=== PATIENT | female | born 1995 | race African-American/Black ===

== ENCOUNTER 2019-08-12 23:49 | Emergency (ER) | payer SELFPAY ==
--- NOTE | 2019-08-13 01:39 | ER Document Report ---
ED General - General Chief Complaint: STD Exposure Stated Complaint: STD EXPOSURE Time Seen by Provider: 08/13/19 01:22 Notes: Patient is a 24-year-old female that comes emergency department with 2 complaints. First complaint is that her new boyfriend just developed a discharge and painful urination and she is concerned she was exposed to an STD. She denies abdominal pain, vaginal bleeding or discharge, dysuria. She states that it is possible she is and she was to be checked although she did have a menstrual cycle within the past 3 weeks. Second complaint is intermittent but frequent lower back pain on both sides which comes and goes. It does respond to ibuprofen and she received a shot of Toradol for this once. She denies injury, fever, IV drug abuse, focal numbness or weakness. She denies any surgeries other than hernia repair as a child. She denies any other complaints. TRAVEL OUTSIDE OF THE [place] IN LAST 30 DAYS: No - Related Data Allergies/Adverse Reactions: No Known Allergies Allergy (Unverified 08/13/19 00:15) Past Medical History - General Information source: Patient Last Menstrual Period: 07/27/19 - Social History Smoking Status: Current Some Day Smoker Chew tobacco use (# tins/day): No Frequency of alcohol use: None Drug Abuse: None Lives with: Family Family History: Reviewed & Not Pertinent Patient has suicidal ideation: No Patient has homicidal ideation: No Surgical Hx: Negative - Immunizations Immunizations up to date: Yes Hx Diphtheria, Pertussis, Tetanus Vaccination: Yes Review of Systems - Review of Systems Constitutional: No symptoms reported EENT: No symptoms reported Cardiovascular: No symptoms reported Respiratory: No symptoms reported Gastrointestinal: See HPI Genitourinary: See HPI Female Genitourinary: See HPI Musculoskeletal: No symptoms reported Skin: No symptoms reported Hematologic/Lymphatic: No symptoms reported Neurological/Psychological: No symptoms reported Physical Exam - Vital signs Vitals: Temp Pulse Resp Pulse Ox 98.3 F 73 20 99 08/13/19 00:03 08/13/19 00:03 08/13/19 00:03 08/13/19 00:03 - Notes Notes: GENERAL: Alert, interacts well. No acute distress. HEAD: Normocephalic, atraumatic. EYES: Pupils equal, round, and reactive to light. Extraocular movements intact. ENT: Oral mucosa moist, tongue midline. Oropharynx unremarkable. Airway patent. LUNGS: Clear to auscultation bilaterally, no wheezes, rales, or rhonchi. No respiratory distress. HEART: Regular rate and rhythm. No murmur ABDOMEN: Soft, non-tender. Non-distended. Bowel sounds present in all 4 quadrants. GENITOURINARY: No bleeding, discharge, tenderness, lesions, or concerning findings noted. Exam performed with [facility] PCT at bedside EXTREMITIES: Moves all 4 extremities spontaneously. No edema, normal radial and dorsalis pedis pulses bilaterally. No cyanosis. BACK: no cervical, thoracic, lumbar midline tenderness. No saddle anesthesia, normal distal neurovascular exam. Moves all extremities in full range of motion. NEUROLOGICAL: Alert and oriented x3. Normal speech. Cranial nerves II through XII grossly intact. PSYCH: Normal affect, normal mood. SKIN: Warm, dry, normal turgor. No rashes or lesions noted. Course - Re-evaluation Re-evalutation: Patient repeatedly asks whether or not she is . This was negative. Urine does indicate infection. Gonorrhea and Chlamydia negative, pelvic exam is very unremarkable with unremarkable wet mount, exam, and no cervical motion tenderness. Abdomen is nontender, vital signs unremarkable. Patient also has what appears to be a mild yeast infection under the breasts bilaterally. She was given Diflucan, started on antibiotics, given repeat Diflucan dose for later. Discussed primary care follow-up and return precautions. Patient states appreciation and agreement. - Vital Signs Vital signs: Temp Pulse Resp BP Pulse Ox 98.2 F 79 16 141/82 H 99 08/13/19 03:00 08/13/19 03:00 08/13/19 03:00 08/13/19 03:00 08/13/19 03:00 - Laboratory Laboratory results interpreted by me: 08/13/19 02:12 Urine Protein 30 H Ur Leukocyte Esterase LARGE H Discharge - Discharge Clinical Impression: Flank pain, Possible exposure to STD, Skin rash Condition: Stable Disposition: HOME, SELF-CARE Additional Instructions: Your work-up shows a urinary tract infection but no other concerning findings. I recommend that you take the antifungal medication after completion of the antibiotics for the urinary tract infection. Your test was negative. Follow-up with primary care for additional management. Return if you worsen including vomiting, developing abdominal pain, fever, or any other concerning symptoms. Prescriptions: Fluconazole [Diflucan] 150 mg PO ONCE PRN #1 tablet PRN Reason: Cephalexin Monohydrate [Keflex 500 mg Capsule] 500 mg PO BID 5 Days #10 capsule Forms: Elevated Blood Pressure
[2019-08-13 02:07] LABS: CHLAM PCR NOT DETECTED (NOT DETECT)
[2019-08-13 02:35] LABS: T.VAGINALIS (WET MOUNT) NO TRICHOMONAS SEEN; YEAST (WET MOUNT) NO YEAST SEEN
[2019-08-13 02:36] LABS: RBCS (WET MOUNT) NO RBCS SEEN; WBCS (WET MOUNT) RARE WBCS SEEN
[2019-08-13 02:42] LABS: APPEARANCE,URINE CLOUDY; BILIRUBIN,URINE NEGATIVE (NEGATIVE); COLOR,URINE YELLOW; GLUCOSE, URINE NEGATIVE (NEGATIVE); KETONES,URINE NEGATIVE (NEGATIVE); LEUKOCYTE ESTERASE,URINE LARGE (NEGATIVE); NITRITE,URINE NEGATIVE (NEGATIVE); PROTEIN,URINE 30 mg/dL (NEGATIVE); URINE SPECIFIC GRAVITY 1.029; UROBILINOGEN,URINE NEGATIVE mg/dL (<2.0)
[2019-08-13] MEDS ORDERED: CEPHALEXIN 500 MG CAPSULE PO ONE (02:58)
[2019-08-13] MEDS ORDERED: FLUCONAZOLE 100 MG TABLET PO ONE (02:58)
[2019-08-13 03:01] VITALS: BP 141/82
== END 2019-08-13 03:10 | disposition home or self-care (01) ==
LOC: ER 23:49
DX: R10.9 Unspecified abdominal pain (principal); R21 Rash and other nonspecific skin eruption; Z20.2 Contact with and (suspected) exposure to infections with a predominantly sexual mode of transmission; N89.8 Other specified noninflammatory disorders of vagina; R30.9 Painful micturition, unspecified; F17.200 Nicotine dependence, unspecified, uncomplicated
CPT/HCPCS: 81001; 81025; 87086; 87088; 87210; 87491; 87591; 99283

== ENCOUNTER 2019-08-16 23:13 | Emergency (ER) | payer SELFPAY ==
[2019-08-16] MEDS ORDERED: DIPHENHYDRAMINE HCL 50 MG/ML VIAL IM ONE (23:22)
[2019-08-16] MEDS ORDERED: DEXAMETHASONE SOD PHOS INJ 10 MG/1 ML VIAL IM ONE (23:22)
[2019-08-16] MEDS ORDERED: FAMOTIDINE 20 MG TABLET PO ONE (23:23)
[2019-08-16 23:26] VITALS: BP 137/94
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
== END 2019-08-17 01:37 | disposition left against medical advice (07) ==
LOC: ER 23:13
DX: T78.40XA Allergy, unspecified, initial encounter (principal); X58.XXXA Exposure to other specified factors, initial encounter
CPT/HCPCS: 99281; J1200; J1100

== ENCOUNTER 2019-08-17 22:51 | Emergency (ER) | payer SELFPAY ==
[2019-08-17 23:04] VITALS: BP 146/82
[2019-08-17] MEDS ORDERED: DIPHENHYDRAMINE HCL 25 MG CAPSULE PO ONE (23:29)
[2019-08-17] MEDS ORDERED: IBUPROFEN 800 MG TABLET PO ONE (23:29)
--- NOTE | 2019-08-17 23:31 | ER Document Report ---
ED Medical Screen (RME) - General Stated Complaint: POSSIBLE ALLERGIC REACTION Time Seen by Provider: 08/17/19 23:29 Mode of Arrival: Ambulatory Information source: Patient Notes: 24-year-old female presents to the emergency department with reports of allergic reaction. She reports she opened her vent in her apartment which has black mold and she started getting hives on her face. She reports the hives are gone now. She was treated yesterday for the same symptoms with steroids and Benadryl. Patient also complains of low back pain. Reports she was treated for UTI 1 week ago but has not picked up her prescription yet. Patient speaking in a clear voice respiratory rate even unlabored. No obvious hives noted to her extremities or to her face. I have greeted and performed a rapid initial assessment of this patient. A comprehensive ED assessment and evaluation of the patient, analysis of test results and completion of the medical decision making process will be conducted by additional ED providers. TRAVEL OUTSIDE OF THE [place] IN LAST 30 DAYS: No - Related Data Allergies/Adverse Reactions: No Known Allergies Allergy (Unverified 08/13/19 00:15) Past Medical History - Immunizations Immunizations up to date: Yes Hx Diphtheria, Pertussis, Tetanus Vaccination: Yes Physical Exam - Vital signs Vitals: Temp Pulse Resp BP Pulse Ox 98.5 F 91 18 146/82 H 100 08/17/19 23:03 08/17/19 23:03 08/17/19 23:03 08/17/19 23:03 08/17/19 23:03 Course - Vital Signs Vital signs: Temp Pulse Resp BP Pulse Ox 98.5 F 91 18 146/82 H 100 08/17/19 23:03 08/17/19 23:03 08/17/19 23:03 08/17/19 23:03 08/17/19 23:03
== END 2019-08-18 01:17 | disposition left against medical advice (07) ==
LOC: ER 22:51
DX: Z77.120 Contact with and (suspected) exposure to mold (toxic) (principal); M54.5 Low back pain; Z53.20 Procedure and treatment not carried out because of patient's decision for unspecified reasons
CPT/HCPCS: 99281